=== PATIENT | male | born 1960 | race Hispanic/Latino ===

== ENCOUNTER 2018-03-19 10:06 | Emergency (ER) | payer OTHER ==
[2018-03-19] MEDS ORDERED: METHYLPREDNISOLONE SOD SUCC 125MG/2ML VIAL ONE (10:26)
[2018-03-19] MEDS ORDERED: ONDANSETRON HCL MDV 20ML 2 MG/ML VIAL ONE (10:26)
[2018-03-19] MEDS ORDERED: HYDROMORPHONE HCL 0.5 MG/0.5 ML ML ONE (10:27)
== END 2018-03-19 12:29 | disposition home or self-care (01) ==
LOC: EDH 10:06
DX: M54.31 Sciatica, right side (principal); R55 Syncope and collapse
CPT/HCPCS: 82948; 93005; 96374; 96375; 99284; J1170; J2930

== ENCOUNTER → 2018-04-02 | Outpatient (CLI) | payer SELFPAY | END | disposition home or self-care (01) | LOC: OIH 14:33 | PROVIDERS: ATTEND Internal Medicine Cardiovascular Disease | DX: Z13.6 Encounter for screening for cardiovascular disorders (principal) | CPT/HCPCS: 75571 ==

== ENCOUNTER 2020-10-19 01:08 | Inpatient (IN) | payer BC ==
[~2020-10-19] VITALS: Ht 167.6 cm; Wt 81.9 kg
[~2020-10-19 01:08] MED LIST: AMLO10TA4 PO; CEPH250 PO; LOSA50TA64 PO
[2020-10-19] MEDS ORDERED: ASPIRIN 325 MG TABLET ONE (01:14)
[2020-10-19] MEDS ORDERED: NITROGLYCERIN 0.4 MG SL TAB SL ONE (01:15)
[2020-10-19] MEDS ORDERED: FAMOTIDINE 20MG TAB 20 MG TAB ONE ×2 (01:28→08:21)
[2020-10-19] MEDS ORDERED: PANTOPRAZOLE SODIUM 40 MG TABLET.DR ONE (01:29)
[2020-10-19 01:32] LABS: EOSINOPHILS % (AUTO) 4.4 % (0.0-8.0); HEMATOCRIT 42.8 % (42-54); LYMPHOCYTES % (AUTO) 30.6 % (21.0-51.0); MEAN CORPUSCULAR HEMOGLOBIN 30.6 pg (27.0-33.0); MEAN CORPUSCULAR HGB CONC 34.8 g/dL (32.0-36.0); MEAN CORPUSCULAR VOLUME 87.9 fL (79-99); MONOCYTES % (AUTO) 10.7 % (3.0-13.0); PLATELET COUNT (AUTO) 284 K/uL (130-400); RED BLOOD CELL COUNT(AUTO) 4.87 MIL/uL (4.50-6.20); RED CELL DISTRIBUTION WIDTH 13.7 % (11.0-15.5)
[2020-10-19 01:37] LABS: CREATININE 1.5 mg/dL (0.5-1.5); POTASSIUM 4.2 mmol/L (3.5-5.1)
[2020-10-19 01:41] LABS: INR 0.98 (0.85-1.15); PROTHROMBIN TIME 10.5 SEC (9.6-11.6)
[2020-10-19 01:42] LABS: ALBUMIN 3.7 g/dL (3.5-5.0); BILIRUBIN,TOTAL 0.3 mg/dL (0.2-1.0); PARTIAL THROMBOPLASTIN TIME 27.6 SEC (26.3-35.5)
[2020-10-19 02:01] LABS: B-TYPE NATRIURETIC PEPTIDE 285 pg/mL (0-100)
[2020-10-19] MEDS ORDERED: NITROGLYCERIN 1GM/1 INCH PACKET TD ONE ×2 (02:05→08:22)
[2020-10-19] MEDS ORDERED: LIDOCAINE HCL 2% VISCOUS 15 ML UDCUP ONE (02:26)
[2020-10-19] MEDS ORDERED: MAG HYDROX/AL HYDROX/SIMETH ES 30 ML SUSP UDCUP ONE (02:26)
[2020-10-19] MEDS ORDERED: ONDANSETRON ODT 4 MG TAB ONE (02:27)
[2020-10-19] MEDS ORDERED: MORPHINE SULFATE 2 MG/ML 1ML SYG IV PRN (02:30)
[2020-10-19] MEDS ORDERED: LACTULOSE 20 GM/30 ML UDCUP PO PRN (02:30)
[2020-10-19] MEDS ORDERED: ACETAMINOPHEN 325 MG TAB PO PRN ×2 (02:30)
[2020-10-19] MEDS ORDERED: ONDANSETRON HCL 4 MG/2 ML VIAL IV PRN (02:30)
[2020-10-19 03:28] LABS: HEMOGLOBIN A1C 5.2 % (4.0-6.0)
[2020-10-19 03:35] LABS: THYROID STIMULATING HORMONE 3.79 uIU/mL (0.36-3.74)
[2020-10-19] MEDS ORDERED: METOCLOPRAMIDE 10 MG/2 ML VIAL ONE (03:43)
[2020-10-19] MEDS ORDERED: SODIUM CHLORIDE 0.9% 100 ML IV ONE (03:44)
[2020-10-19] MEDS ORDERED: MORPHINE SULFATE 2 MG/ML 1ML SYG ONE ×2 (04:23→08:22)
[2020-10-19 04:41] LABS: APPEARANCE,URINE Clear (CLEAR); BILIRUBIN,URINE Negative (NEGATIVE); COLOR,URINE Yellow (YELLOW); GLUCOSE, URINE (UA) Negative (NEGATIVE); KETONES,URINE Negative (NEGATIVE); LEUKOCYTE ESTERASE ,URINE Negative (NEGATIVE); NITRATE,URINE Negative (NEGATIVE); OCCULT BLOOD,URINE Negative (NEGATIVE); PROTEIN,URINE Negative (NEGATIVE); UROBILINOGEN,URINE 0.2 mg/dL (0.2-1.0)
[2020-10-19] MEDS ORDERED: ACETAMINOPHEN 325 MG TAB ONE (07:28)
[2020-10-19] MEDS ORDERED: ONDANSETRON HCL 4 MG/2 ML VIAL ONE (08:21)
[2020-10-19] MEDS ORDERED: METOPROLOL TARTRATE 25 MG TAB ONE (08:22)
[2020-10-19] MEDS ORDERED: CLOPIDOGREL BISULFATE 75 MG TAB ONE (08:58)
[2020-10-19] MEDS: CLOPIDOGREL BISULFATE 75 MG TAB PO SCH (09:00)
[2020-10-19 17:05] VITALS: BP 126/65
[2020-10-19] MEDS: ASPIRIN 81MG TAB.CHEW PO SCH (18:11)
[2020-10-19] MEDS: FAMOTIDINE 20MG TAB 20 MG TAB PO SCH (18:11)
[2020-10-19] MEDS: METOPROLOL TARTRATE 25 MG TAB PO SCH ×2 (18:11→21:00)
[2020-10-19] MEDS: NITROGLYCERIN 1GM/1 INCH PACKET TD SCH ×2 (18:12→18:13)
[2020-10-19] MEDS ORDERED: CLOP75TA32 PO (18:25)
[2020-10-19] MEDS ORDERED: SACU1TAB PO (18:25)
[2020-10-19] MEDS ORDERED: NITR0.4T50 SL (18:25)
[2020-10-19] MEDS ORDERED: ISOS30TA6 PO (18:25)
[2020-10-19] MEDS ORDERED: METO-408 PO ×2 (18:25)
[2020-10-19] MEDS ORDERED: AEC81 PO (18:25)
[2020-10-19 19:00] VITALS: BP 108/63
[2020-10-19] MEDS: ATORVASTATIN CALCIUM 20 MG TABLET PO SCH (20:44)
[2020-10-19 23:00] VITALS: BP 110/54
[2020-10-20 03:00] VITALS: BP 109/59
[2020-10-20] MEDS: NITROGLYCERIN 1GM/1 INCH PACKET TD SCH ×3 (03:01→18:01)
[2020-10-20] MEDS: ZOSYN 3.375GM+NS 50ML 50 ML IV SCH ×3 (03:02→13:53)
[2020-10-20 05:35] LABS: BASOPHILS % (AUTO) 1.2 % (0.0-5.0); EOSINOPHILS % (AUTO) 4.9 % (0.0-8.0); HEMATOCRIT 40.4 % (42-54); LYMPHOCYTES % (AUTO) 24.4 % (21.0-51.0); MEAN CORPUSCULAR HGB CONC 34.7 g/dL (32.0-36.0); MEAN CORPUSCULAR VOLUME 89.6 fL (79-99); MONOCYTES % (AUTO) 10.9 % (3.0-13.0); NEUTROPHILS % (AUTO) 58.3 % (40.0-77.0); PLATELET COUNT (AUTO) 309 K/uL (130-400); RED BLOOD CELL COUNT(AUTO) 4.51 MIL/uL (4.50-6.20); RED CELL DISTRIBUTION WIDTH 13.9 % (11.0-15.5); WHITE BLOOD COUNT (AUTO) 8.6 K/uL (4.8-10.8)
[2020-10-20 06:03] LABS: CREATININE 1.6 mg/dL (0.5-1.5); POTASSIUM 3.7 mmol/L (3.5-5.1)
[2020-10-20 08:00] VITALS: BP 100/56
[2020-10-20] MEDS: METOPROLOL TARTRATE 25 MG TAB PO SCH (09:00)
[2020-10-20] MEDS: CLOPIDOGREL BISULFATE 75 MG TAB PO SCH (09:00)
[2020-10-20] MEDS: ASPIRIN 81MG TAB.CHEW PO SCH (09:00)
[2020-10-20 11:22] VITALS: BP 102/60
[2020-10-20] MEDS ORDERED: FENTANYL CITRATE PF 50 MCG/1 ML 2ML VIAL ONE (12:41)
[2020-10-20 16:09] VITALS: BP 115/58
[2020-10-20] MEDS: FAMOTIDINE 20MG TAB 20 MG TAB PO SCH (17:07)
[2020-10-20] MEDS ORDERED: NITROGLYCERIN 0.4 MG SL TAB SL SCH (19:30)
[2020-10-20 19:35] VITALS: BP 109/58
[2020-10-20] MEDS: ATORVASTATIN CALCIUM 20 MG TABLET PO SCH (21:00)
[2020-10-20] MEDS ORDERED: VALSARTAN PO SCH (21:00)
[2020-10-20] MEDS ORDERED: SACUBITRIL PO SCH (21:00)
[2020-10-20] MEDS ORDERED: [UNRECOGNIZED DRUG - OTHER] PO SCH (21:00)
[2020-10-20] MEDS: (Sacubitril/Valsartan (Entresto 24 mg-26 mg Tablet) PO SCH (21:00)
[2020-10-20 23:19] VITALS: BP 97/52
[2020-10-21] MEDS: ZOSYN 3.375GM+NS 50ML 50 ML IV SCH ×2 (02:26→09:35)
[2020-10-21] MEDS: NITROGLYCERIN 1GM/1 INCH PACKET TD SCH ×2 (02:27→09:36)
[2020-10-21 03:40] VITALS: BP 102/56
[2020-10-21] MEDS ORDERED: METOPROLOL SUCCINATE 50 MG TAB.SR.24H PO SCH (08:00)
[2020-10-21] MEDS ORDERED: NON-FORMULARY MEDICATION 1 EACH (Metoprolol Succinate 25 MG) PO SCH (08:00)
[2020-10-21 08:01] VITALS: BP 105/56
[2020-10-21] MEDS ORDERED: ISOSORBIDE MONO 30MG TAB SR PO SCH (09:00)
[2020-10-21] MEDS ORDERED: ASPIRIN 81 MG EC TAB PO SCH (09:00)
[2020-10-21] MEDS ORDERED: CLOPIDOGREL BISULFATE 75 MG TAB PO SCH (09:00)
[2020-10-21] MEDS: (Sacubitril/Valsartan (Entresto 24 mg-26 mg Tablet) PO SCH (09:00)
[2020-10-21] MEDS: FAMOTIDINE 20MG TAB 20 MG TAB PO SCH (09:35)
[2020-10-21] MEDS: CLOPIDOGREL BISULFATE 75 MG TAB PO SCH (09:36)
[2020-10-21 11:33] VITALS: BP 94/53
== END 2020-10-21 15:08 | disposition home or self-care (01) | DRG 445 ==
LOC: EDH 01:08 → EDHIP 02:19 → OBSVTOIN 02:19 → 4DH 16:18
PROVIDERS: ADMIT Internal Medicine; ATTEND Internal Medicine
PROC: 0F9430Z Drainage of Gallbladder with Drainage Device, Percutaneous Approach (ICD-10-PCS; principal; 2020-10-20)
DX: K80.00 Calculus of gallbladder with acute cholecystitis without obstruction (principal); I24.9 Acute ischemic heart disease, unspecified; I12.9 Hypertensive chronic kidney disease with stage 1 through stage 4 chronic kidney disease, or unspecified chronic kidney disease; E78.5 Hyperlipidemia, unspecified; N18.30 Chronic kidney disease, stage 3 unspecified; I25.10 Atherosclerotic heart disease of native coronary artery without angina pectoris; M54.30 Sciatica, unspecified side; I25.5 Ischemic cardiomyopathy; Z79.82 Long term (current) use of aspirin; Z79.899 Other long term (current) drug therapy; Z79.02 Long term (current) use of antithrombotics/antiplatelets; I25.2 Old myocardial infarction; Z95.0 Presence of cardiac pacemaker; Z80.9 Family history of malignant neoplasm, unspecified; Z82.49 Family history of ischemic heart disease and other diseases of the circulatory system
CPT/HCPCS: 10030; 36415; 71045; 74176; 76705; 77012; 78227; 80048; 80053; 80061; 81003; 82550; 83036; 83690; 83880; 84145; 84443; 84484; 85025; 85610; 85730; 87071; 87205; 93005; 93306; 93356; 99291; A9537; G0378; J2405; J2543; J2765; J3010

== ENCOUNTER 2020-11-30 05:49 | Day surgery (SDC) | payer BC ==
[2020-11-28 09:11] LABS: BASOPHILS % (AUTO) 1.2 % (0.0-5.0); EOSINOPHILS % (AUTO) 8.1 % (0.0-8.0); HEMATOCRIT 41.3 % (42-54); LYMPHOCYTES % (AUTO) 24.7 % (21.0-51.0); MEAN CORPUSCULAR HEMOGLOBIN 30.3 pg (27.0-33.0); MEAN CORPUSCULAR HGB CONC 34.4 g/dL (32.0-36.0); MEAN CORPUSCULAR VOLUME 88.2 fL (79-99); NEUTROPHILS % (AUTO) 55.7 % (40.0-77.0); PLATELET COUNT (AUTO) 246 K/uL (130-400); RED BLOOD CELL COUNT(AUTO) 4.68 MIL/uL (4.50-6.20); RED CELL DISTRIBUTION WIDTH 12.8 % (11.0-15.5); WHITE BLOOD COUNT (AUTO) 6.5 K/uL (4.8-10.8)
[2020-11-28 09:16] LABS: CREATININE 1.7 mg/dL (0.5-1.5)
[2020-11-28 09:20] LABS: APPEARANCE,URINE Clear (CLEAR); BILIRUBIN,URINE Negative (NEGATIVE); COLOR,URINE Yellow (YELLOW); GLUCOSE, URINE (UA) Negative (NEGATIVE); KETONES,URINE Trace mg/dL (NEGATIVE); LEUKOCYTE ESTERASE ,URINE Negative (NEGATIVE); NITRATE,URINE Negative (NEGATIVE); OCCULT BLOOD,URINE Negative (NEGATIVE); PH,URINE 5.5 (5.0-8.0); PROTEIN,URINE Trace mg/dL (NEGATIVE); UROBILINOGEN,URINE 0.2 mg/dL (0.2-1.0)
[2020-11-28 09:20] LABS: INR 1.09 (0.85-1.15); PROTHROMBIN TIME 11.6 SEC (9.6-11.6)
[2020-11-28 09:25] LABS: POTASSIUM 2.8 mmol/L (3.5-5.1)
[2020-11-28 09:46] LABS: BACTERIA,URINE Rare /HPF (None Seen); RBC,URINE None Seen /HPF (0-1); SQUAMOUS EPITHELIAL CELL,UR 0-2 /HPF (0-2); WBC,URINE 0-1 /HPF (0-1)
[2020-11-29 11:12] VITALS: BP 147/61
[2020-11-30] VITALS (9 sets, daily range): BP systolic 91–117; BP diastolic 48–62
[~2020-11-30] VITALS: Ht 167.6 cm; Wt 82.8 kg
[~2020-11-30 05:49] MED LIST changes: +AEC81 PO; -AMLO10TA4 PO; -CEPH250 PO; +CLOP75TA32 PO; +FURO40TA5 PO; +ISOS30TA6 PO; -LOSA50TA64 PO; +METO-408 PO; +NITR0.4T50 SL; +PEPCID AC PO; +POTA-79 PO; +SACU1TAB PO
[2020-11-30] MEDS ORDERED: SODIUM CHLORIDE 0.9% 1000ML 1,000 ML IV ONE (06:14)
[2020-11-30] MEDS ORDERED: IOHEXOL 350 MG/ML 100ML INFUS..BTL IV ONE (07:15)
[2020-11-30] MEDS ORDERED: IOHEXOL-350 50ML VIAL IV ONE (07:15)
[2020-11-30] MEDS ORDERED: HEPARIN SODIUM 1000UNIT/ML 10ML VIAL ONE (07:15)
[2020-11-30] MEDS ORDERED: NITROGLYCERIN 2 MG/VIAL VIAL IV ONE (07:15)
[2020-11-30] MEDS ORDERED: LIDOCAINE HCL 2% 20ML ONE (07:15)
[2020-11-30] MEDS ORDERED: MIDAZOLAM HCL 1 MG/ML 2ML VIAL ONE (07:28)
== END 2020-11-30 11:00 | disposition home or self-care (01) ==
LOC: DAH 05:49
PROVIDERS: ATTEND Internal Medicine Cardiovascular Disease
DX: I25.118 Atherosclerotic heart disease of native coronary artery with other forms of angina pectoris (principal); I10 Essential (primary) hypertension; I44.1 Atrioventricular block, second degree; I21.29 ST elevation (STEMI) myocardial infarction involving other sites; I25.5 Ischemic cardiomyopathy; Z98.890 Other specified postprocedural states; Z95.0 Presence of cardiac pacemaker; Z79.899 Other long term (current) drug therapy
CPT/HCPCS: 36415 ×2; 71045; 80048; 81001; 84132; 85025; 85610; 85730; 93005; 93458; A4215; A4216; A4221; A4222; A4223 ×3; A4606; A4663; C1760; C1894; J1644; J2250; J3490 ×2; J7030; Q9965; Q9967 ×2; 99156; 99157

== ENCOUNTER 2020-12-29 09:00 | Inpatient (IN) | payer BC ==
[~2020-12-29] VITALS: Ht 162.6 cm; Wt 85.3 kg
[~2020-12-29 09:00] MED LIST changes: -ISOS30TA6 PO; +ISOS30TA92 PO; -NITR0.4T50 SL; -PEPCID AC PO; -POTA-79 PO
[2020-12-29 11:33] LABS: BASOPHILS % (AUTO) 1.3 % (0.0-5.0); EOSINOPHILS % (AUTO) 5.4 % (0.0-8.0); LYMPHOCYTES % (AUTO) 24.5 % (21.0-51.0); MEAN CORPUSCULAR HEMOGLOBIN 30.8 pg (27.0-33.0); MEAN CORPUSCULAR HGB CONC 34.9 g/dL (32.0-36.0); MEAN CORPUSCULAR VOLUME 88.4 fL (79-99); MONOCYTES % (AUTO) 9.9 % (3.0-13.0); NEUTROPHILS % (AUTO) 58.5 % (40.0-77.0); PLATELET COUNT (AUTO) 276 K/uL (130-400); RED BLOOD CELL COUNT(AUTO) 4.64 MIL/uL (4.50-6.20); RED CELL DISTRIBUTION WIDTH 13.2 % (11.0-15.5); WHITE BLOOD COUNT (AUTO) 7.8 K/uL (4.8-10.8)
[2020-12-29 11:43] LABS: HEMOGLOBIN A1C 5.5 % (4.0-6.0)
[2020-12-29 11:48] LABS: ALBUMIN 3.4 g/dL (3.5-5.0); BILIRUBIN,TOTAL 0.6 mg/dL (0.2-1.0); CREATININE 1.4 mg/dL (0.5-1.5); INR 1.06 (0.85-1.15); PROTHROMBIN TIME 11.5 SEC (9.6-11.6); TOTAL PROTEIN, SERUM 8.2 g/dL (6.0-8.3)
[2020-12-29 11:51] LABS: POTASSIUM 2.8 mmol/L (3.5-5.1)
[2020-12-29 12:11] LABS: PLATELET FUNCTION ANALYSIS EPI > 300 SEC (55-192)
[2020-12-29 12:12] LABS: PLATELET COUNT (AUTO) 276 K/uL (130-400); PLATELET FUNCTION ANALYSIS ADP 96 SEC (62-100)
[2021-01-01 10:08] VITALS: BP 118/59
[2021-01-01] MEDS ORDERED: FAMO-136 PO (10:57)
[2021-01-01] MEDS ORDERED: POTA10CA44 PO (10:57)
[2021-01-02] VITALS (17 sets, daily range): BP systolic 104–148; BP diastolic 50–72
[2021-01-02] MEDS: CEFAZOLIN SODIUM 1 GM VIAL IVP SCH ×2 (06:00→11:35)
[2021-01-02] MEDS ORDERED: LACTATED RINGERS 1000ML 1,000 ML IV ONE (10:09)
[2021-01-02] MEDS ORDERED: AMINOCAPROIC ACID 5,000MG VIAL 15,000 MG in 0.9% NACL 500ML IV.SOLN 420 ML IV PRN (10:15)
[2021-01-02] MEDS ORDERED: EPINEPHRINE PF 1MG AMP 10 MG in 0.9% NACL 250ML 240 ML IV PRN (10:15)
[2021-01-02] MEDS ORDERED: NOREPINEPHRINE BITARTRATE 8 MG in DEXTROSE 5%-WATER 250 ML IV PRN (10:15)
[2021-01-02] MEDS ORDERED: PAPAVERINE HCL 30 MG/ML 2ML VIAL ONE (10:35)
[2021-01-02] MEDS ORDERED: NOREPINEPHRINE BITARTRATE 8 MG in 0.9% NACL 250ML 250 ML IV PRN (11:00)
[2021-01-02] MEDS ORDERED: HEPARIN 10,000 UNIT/10ML (1,000 UNIT/ML) VIAL ONE ×2 (11:15→12:13)
[2021-01-02] MEDS ORDERED: ESMOLOL HCL 10 MG/ML 10 ML VIAL ONE (11:15)
[2021-01-02] MEDS ORDERED: EPINEPHRINE PF 1MG AMP ONE (11:15)
[2021-01-02] MEDS ORDERED: PROTAMINE SULFATE 10 MG/ML 25ML VIAL IV ONE (11:15)
[2021-01-02] MEDS ORDERED: AMINOCAPROIC ACID 5,000MG VIAL ONE (11:15)
[2021-01-02] MEDS ORDERED: SODIUM BICARB 50MEQ 50ML VIAL 150 ML ONE ×2 (11:15→13:05)
[2021-01-02] MEDS ORDERED: LIDOCAINE PF 100MG/5ML (2%) SYRINGE 5ML ONE (11:15)
[2021-01-02] MEDS ORDERED: NOREPINEPHRINE BITARTRATE 1 MG/1 ML ML IV ONE (11:15)
[2021-01-02] MEDS ORDERED: FENTANYL CITRATE PF 50 MCG/1 ML 20ML VIAL IJ ONE (11:16)
[2021-01-02] MEDS ORDERED: NITROGLYCERIN 50MG/D5W 250ML 1 BOT ONE (11:16)
[2021-01-02] MEDS ORDERED: ROCURONIUM 10MG/1ML SYR 10 MG/ML ML ONE (11:16)
[2021-01-02] MEDS ORDERED: MIDAZOLAM HCL 1 MG/ML 2ML VIAL ONE (11:16)
[2021-01-02] MEDS ORDERED: PROPOFOL 10 MG/ML 20ML VIAL IV ONE (11:16)
[2021-01-02] MEDS ORDERED: KETAMINE HCL 100 MG/ML 5ML VIAL IJ ONE (11:20)
[2021-01-02 12:08] LABS: ABG BASE EXCESS -1.4 mmol/L (-2.0-3.0); ABG HCO3 26.3 mmol/L (21.0-28.0); ABG OXYGEN SATURATION 99.3 % (95.0-99.0); ABG PCO2 57 mmHg (35-48)
[2021-01-02] MEDS ORDERED: PHENYLEPHRINE HCL 10 MG/ML 1ML VIAL IV ONE ×2 (12:36→12:37)
[2021-01-02] MEDS ORDERED: POTASSIUM CHLORIDE 20MEQ/100ML 100 ML IV ONE ×3 (12:48→14:01)
[2021-01-02] MEDS ORDERED: AMIODARONE 150MG VIAL ONE (13:01)
[2021-01-02] MEDS ORDERED: MIDAZOLAM HCL 1 MG/ML 5ML VIAL ONE (13:07)
[2021-01-02] MEDS ORDERED: ALBUMIN (HUMAN) 5% 250 ML IV ONE (13:08)
[2021-01-02 13:10] LABS: ABG BASE EXCESS 7.4 mmol/L (-2.0-3.0); ABG HCO3 31.3 mmol/L (21.0-28.0); ABG OXYGEN SATURATION 98.7 % (95.0-99.0); ABG PCO2 41 mmHg (35-48)
[2021-01-02 13:34] LABS: ABG OXYGEN SATURATION 98.6 % (95.0-99.0); ABG PCO2 41 mmHg (35-48)
[2021-01-02 13:57] LABS: ABG BASE EXCESS -3.2 mmol/L (-2.0-3.0); ABG HCO3 22.5 mmol/L (21.0-28.0); ABG OXYGEN SATURATION 97.6 % (95.0-99.0); ABG PCO2 43 mmHg (35-48)
[2021-01-02] MEDS ORDERED: GLUCAGON 1MG KIT 1 MG ML IM PRN (14:00)
[2021-01-02] MEDS ORDERED: ONDANSETRON 4MG INJ IV PRN (14:00)
[2021-01-02] MEDS ORDERED: INSULIN REGULAR, HUMAN 3ML 100 UNIT in 0.9%NACL 100ML 99 ML IV SCH ×2 (14:00)
[2021-01-02] MEDS ORDERED: PROPOFOL 1000 MG/100 ML 100 ML IV PRN (14:00)
[2021-01-02] MEDS ORDERED: EPINEPHRINE PF 1MG AMP 10 MG in DEXTROSE 5%-WATER 250 ML IV PRN (14:00)
[2021-01-02] MEDS ORDERED: ACETAMINOPHEN 325 MG TAB PO PRN (14:00)
[2021-01-02] MEDS ORDERED: AMINOCAPROIC ACID 5,000MG VIAL 15,000 MG in 0.9% NACL 250ML 250 ML IV SCH (14:00)
[2021-01-02] MEDS ORDERED: ALBUMIN (HUMAN) 5% 250 ML IV PRN (14:00)
[2021-01-02] MEDS ORDERED: NOREPINEPHRIN 4MG/NS 250ML 250 ML IV PRN (14:00)
[2021-01-02] MEDS ORDERED: MAGNESIUM 2GM PREMIX 50ML 50 ML IV PRN (14:00)
[2021-01-02] MEDS ORDERED: ACETAMINOPHEN 650 MG SUPPOSITORY RC PRN (14:00)
[2021-01-02] MEDS ORDERED: POTASSIUM PHOS 15 mMOL+NS250ML 250 ML IV PRN (14:00)
[2021-01-02] MEDS ORDERED: 0.9%NACL 10ML VIAL IVP PRN (14:00)
[2021-01-02] MEDS ORDERED: NITROGLYCERIN 50MG/D5W 250ML 250 BOT IV SCH (14:00)
[2021-01-02] MEDS ORDERED: 0.9% NACL 500ML IV.SOLN 500 ML IV SCH (14:00)
[2021-01-02] MEDS ORDERED: DEXTROSE 50%-WATER 50 ML DISP.SYRIN IV PRN (14:00)
[2021-01-02] MEDS ORDERED: 0.9%NACL 1000ML 1,000 ML IV SCH (14:00)
[2021-01-02] MEDS ORDERED: MORPHINE 4 MG SYG IV PRN (14:00)
[2021-01-02] MEDS ORDERED: CALCIUM GLUC 1GM 1 GM in 0.9%NACL 50ML 50 ML IV PRN (14:00)
[2021-01-02] MEDS ORDERED: MORPHINE 2 MG SYG IV PRN ×2 (14:00→14:30)
[2021-01-02 15:01] LABS: CREATININE 1.6 mg/dL (0.5-1.5); MAGNESIUM 1.6 mg/dL (1.80-2.40); PHOSPHORUS 3.5 mg/dL (2.5-4.9)
[2021-01-02 15:03] LABS: HEMATOCRIT 34.5 % (42-54); MEAN CORPUSCULAR HEMOGLOBIN 30.9 pg (27.0-33.0); MEAN CORPUSCULAR HGB CONC 35.1 g/dL (32.0-36.0); MEAN CORPUSCULAR VOLUME 88.2 fL (79-99); PLATELET COUNT (AUTO) 358 K/uL (130-400); RED BLOOD CELL COUNT(AUTO) 3.91 MIL/uL (4.50-6.20); RED CELL DISTRIBUTION WIDTH 13.1 % (11.0-15.5)
[2021-01-02 15:05] LABS: INR 1.15 (0.85-1.15); PROTHROMBIN TIME 12.4 SEC (9.6-11.6)
[2021-01-02 15:06] LABS: PARTIAL THROMBOPLASTIN TIME 33.3 SEC (26.3-35.5)
[2021-01-02 15:07] LABS: WHITE BLOOD COUNT (AUTO) 36.8 K/uL (4.8-10.8)
[2021-01-02] MEDS: POTASSIUM CHLORIDE 20MEQ/100ML 100 ML IV PRN ×6 (15:10→21:07)
[2021-01-02 15:32] LABS: ABG BASE EXCESS -5.3 mmol/L (-2.0-3.0); ABG HCO3 19.4 mmol/L (21.0-28.0); ABG OXYGEN SATURATION 97.8 % (95.0-99.0); ABG PCO2 35 mmHg (35-48)
[2021-01-02] MEDS: SODIUM BICARB 50MEQ 50ML VIAL IV PRN ×3 (15:56→20:42)
[2021-01-02 16:09] LABS: BAND NEUTROPHILS % (MANUAL) 4 % (0-2); EOSINOPHILS % (MANUAL) 1 % (1-6); LYMPHOCYTES % (MANUAL) 12 % (22-44); MAN.DIFF COMMENT-IMPRESSION MANUAL DIFFERENTIAL; MONOCYTES % (MANUAL) 7 % (2-9); PLATELET MORPHOLOGY COMMENT ADEQUATE; SEGMENTED NEUTROPHILS % 76 % (40-70)
[2021-01-02 16:38] LABS: ABG BASE EXCESS -1.1 mmol/L (-2.0-3.0); ABG OXYGEN SATURATION 94.4 % (95.0-99.0); ABG PCO2 42 mmHg (35-48)
[2021-01-02] MEDS: TRAMADOL HCL 50 MG TABLET PO PRN ×3 (17:40→21:38)
[2021-01-02 17:41] LABS: ABG BASE EXCESS -0.9 mmol/L (-2.0-3.0); ABG HCO3 24.2 mmol/L (21.0-28.0); ABG OXYGEN SATURATION 95.7 % (95.0-99.0); ABG PCO2 42 mmHg (35-48)
[2021-01-02 19:03] LABS: ABG BASE EXCESS -2.9 mmol/L (-2.0-3.0); ABG HCO3 22.6 mmol/L (21.0-28.0); ABG OXYGEN SATURATION 96.6 % (95.0-99.0); ABG PCO2 42 mmHg (35-48)
[2021-01-02] MEDS: CEFAZOLIN SODIUM 1 GM VIAL IV SCH (19:36)
[2021-01-02] MEDS: ATORVASTATIN 20 MG TABLET PO SCH (21:00)
[2021-01-02 21:21] LABS: ABG BASE EXCESS 1.7 mmol/L (-2.0-3.0); ABG HCO3 26.2 mmol/L (21.0-28.0); ABG OXYGEN SATURATION 95.9 % (95.0-99.0); ABG PCO2 41 mmHg (35-48)
[2021-01-02] MEDS: FAMOTIDINE 20MG VIAL IV SCH (21:34)
[2021-01-03] VITALS (44 sets, daily range): BP systolic 67–136; BP diastolic 39–109
[2021-01-03] MEDS: POTASSIUM CHLORIDE 20MEQ/100ML 100 ML IV PRN ×3 (02:38→07:00)
[2021-01-03 03:50] LABS: ABG BASE EXCESS 2.7 mmol/L (-2.0-3.0); ABG HCO3 26.9 mmol/L (21.0-28.0); ABG OXYGEN SATURATION 96.5 % (95.0-99.0); ABG PCO2 40 mmHg (35-48)
[2021-01-03] MEDS: TRAMADOL HCL 50 MG TABLET PO PRN ×2 (03:53→17:53)
[2021-01-03] MEDS: CEFAZOLIN SODIUM 1 GM VIAL IV SCH ×2 (03:54→18:46)
[2021-01-03 04:17] LABS: HEMATOCRIT 35.6 % (42-54); MEAN CORPUSCULAR HEMOGLOBIN 30.6 pg (27.0-33.0); MEAN CORPUSCULAR HGB CONC 34.6 g/dL (32.0-36.0); MEAN CORPUSCULAR VOLUME 88.6 fL (79-99); RED BLOOD CELL COUNT(AUTO) 4.02 MIL/uL (4.50-6.20); RED CELL DISTRIBUTION WIDTH 13.2 % (11.0-15.5); WHITE BLOOD COUNT (AUTO) 25.5 K/uL (4.8-10.8)
[2021-01-03 04:34] LABS: PROTHROMBIN TIME 10.9 SEC (9.6-11.6)
[2021-01-03 04:35] LABS: PARTIAL THROMBOPLASTIN TIME 22.1 SEC (26.3-35.5)
[2021-01-03 04:36] LABS: CREATININE 1.8 mg/dL (0.5-1.5); MAGNESIUM 2.3 mg/dL (1.80-2.40); PHOSPHORUS 0.8 mg/dL (2.5-4.9); POTASSIUM 3.7 mmol/L (3.5-5.1)
[2021-01-03] MEDS: ASPIRIN 325MG EC TAB PO SCH (09:05)
[2021-01-03] MEDS: FAMOTIDINE 20MG VIAL IV SCH ×2 (09:05→20:53)
[2021-01-03] MEDS: FUROSEMIDE 20MG VIAL IV SCH ×2 (09:05→20:53)
[2021-01-03] MEDS ORDERED: PHARMACY COMMUNICATION MISC SCH (19:30)
[2021-01-03] MEDS: ATORVASTATIN 20 MG TABLET PO SCH (20:53)
[2021-01-04] VITALS (30 sets, daily range): BP systolic 89–129; BP diastolic 46–83
[2021-01-04] MEDS: TRAMADOL HCL 50 MG TABLET PO PRN ×3 (01:00→13:51)
[2021-01-04 04:54] LABS: HEMATOCRIT 33.5 % (42-54); MEAN CORPUSCULAR HEMOGLOBIN 30.4 pg (27.0-33.0); MEAN CORPUSCULAR HGB CONC 33.4 g/dL (32.0-36.0); RED BLOOD CELL COUNT(AUTO) 3.68 MIL/uL (4.50-6.20); RED CELL DISTRIBUTION WIDTH 13.9 % (11.0-15.5); WHITE BLOOD COUNT (AUTO) 24.3 K/uL (4.8-10.8)
[2021-01-04 05:20] LABS: PHOSPHORUS 2.6 mg/dL (2.5-4.9)
[2021-01-04] MEDS: METOPROLOL TARTRATE 25 MG TAB PO SCH ×2 (08:34→21:00)
[2021-01-04] MEDS: ASPIRIN 325MG EC TAB PO SCH (08:37)
[2021-01-04] MEDS: FUROSEMIDE 20 MG TABLET PO SCH ×2 (08:37→16:50)
[2021-01-04] MEDS: FAMOTIDINE 20MG TAB PO SCH (08:38)
[2021-01-04] MEDS ORDERED: METOPROLOL TARTRATE 25 MG TAB PO SCH (09:00)
[2021-01-04] MEDS: MIDODRINE HCL 5 MG TABLET PO SCH (16:49)
[2021-01-04] MEDS: ATORVASTATIN 20 MG TABLET PO SCH (20:30)
[2021-01-05] VITALS (16 sets, daily range): BP systolic 94–136; BP diastolic 39–70
[2021-01-05] MEDS: MIDODRINE HCL 5 MG TABLET PO SCH ×4 (00:23→20:37)
[2021-01-05 04:37] LABS: HEMATOCRIT 31.3 % (42-54); MEAN CORPUSCULAR HEMOGLOBIN 30.8 pg (27.0-33.0); MEAN CORPUSCULAR HGB CONC 33.2 g/dL (32.0-36.0); MEAN CORPUSCULAR VOLUME 92.6 fL (79-99); RED BLOOD CELL COUNT(AUTO) 3.38 MIL/uL (4.50-6.20); RED CELL DISTRIBUTION WIDTH 13.8 % (11.0-15.5); WHITE BLOOD COUNT (AUTO) 14.7 K/uL (4.8-10.8)
[2021-01-05 04:54] LABS: CREATININE 1.8 mg/dL (0.5-1.5); POTASSIUM 4.6 mmol/L (3.5-5.1)
[2021-01-05] MEDS: METOPROLOL TARTRATE 25 MG TAB PO SCH ×2 (09:00→20:37)
[2021-01-05] MEDS: FUROSEMIDE 20 MG TABLET PO SCH ×2 (09:10→17:15)
[2021-01-05] MEDS: ASPIRIN 325MG EC TAB PO SCH (09:10)
[2021-01-05] MEDS: ENOXAPARIN SODIUM 30 MG/0.3 ML SQ SCH (09:11)
[2021-01-05] MEDS: FAMOTIDINE 20MG TAB PO SCH (09:12)
[2021-01-05] MEDS: ATORVASTATIN 20 MG TABLET PO SCH (20:41)
[2021-01-06] VITALS (7 sets, daily range): BP systolic 95–118; BP diastolic 41–65
[2021-01-06 05:17] LABS: HEMATOCRIT 31.8 % (42-54); MEAN CORPUSCULAR HEMOGLOBIN 31.1 pg (27.0-33.0); MEAN CORPUSCULAR VOLUME 91.6 fL (79-99); RED BLOOD CELL COUNT(AUTO) 3.47 MIL/uL (4.50-6.20); RED CELL DISTRIBUTION WIDTH 13.3 % (11.0-15.5); WHITE BLOOD COUNT (AUTO) 12.2 K/uL (4.8-10.8)
[2021-01-06 05:24] LABS: CREATININE 1.6 mg/dL (0.5-1.5); POTASSIUM 3.7 mmol/L (3.5-5.1)
[2021-01-06] MEDS: ENOXAPARIN SODIUM 30 MG/0.3 ML SQ SCH (08:06)
[2021-01-06] MEDS: FAMOTIDINE 20MG TAB PO SCH (08:06)
[2021-01-06] MEDS: METOPROLOL TARTRATE 25 MG TAB PO SCH ×2 (08:06→19:40)
[2021-01-06] MEDS: MIDODRINE HCL 5 MG TABLET PO SCH ×2 (08:06→13:33)
[2021-01-06] MEDS: FUROSEMIDE 20 MG TABLET PO SCH (08:06)
[2021-01-06] MEDS: ASPIRIN 325MG EC TAB PO SCH (08:06)
[2021-01-06] MEDS: CLOPIDOGREL 75MG TAB PO SCH (13:33)
[2021-01-06] MEDS ORDERED: PHEN26CR2 RC (18:43)
[2021-01-06] MEDS ORDERED: BISM262O28 PO (18:43)
[2021-01-06] MEDS: ATORVASTATIN 20 MG TABLET PO SCH (19:40)
[2021-01-06] MEDS ORDERED: HEMORRHOIDAL OINTMENT 57 GM CREAM.GM. RC PRN (21:00)
[2021-01-07 04:16] VITALS: BP 102/51
[2021-01-07 08:00] VITALS: BP 116/56
[2021-01-07] MEDS: ASPIRIN 325MG EC TAB PO SCH (08:30)
[2021-01-07] MEDS: MIDODRINE HCL 5 MG TABLET PO SCH ×2 (08:31→22:24)
[2021-01-07] MEDS: METOPROLOL TARTRATE 25 MG TAB PO SCH ×2 (08:32→22:25)
[2021-01-07] MEDS: CLOPIDOGREL 75MG TAB PO SCH (08:32)
[2021-01-07] MEDS: FAMOTIDINE 20MG TAB PO SCH (08:32)
[2021-01-07] MEDS: FUROSEMIDE 20 MG TABLET PO SCH (08:32)
[2021-01-07] MEDS: ENOXAPARIN SODIUM 30 MG/0.3 ML SQ SCH (08:38)
[2021-01-07 11:23] VITALS: BP 133/61
[2021-01-07 16:00] VITALS: BP 124/59
[2021-01-07 20:03] VITALS: BP 127/62
[2021-01-07] MEDS: ATORVASTATIN 20 MG TABLET PO SCH (22:24)
[2021-01-07 23:45] VITALS: BP 109/60
[2021-01-08 04:30] VITALS: BP 115/57
[2021-01-08] MEDS ORDERED: ATOR20TA65 PO (07:00)
[2021-01-08] MEDS: ENOXAPARIN SODIUM 30 MG/0.3 ML SQ SCH (07:26)
[2021-01-08] MEDS: FAMOTIDINE 20MG TAB PO SCH (07:26)
[2021-01-08] MEDS: METOPROLOL TARTRATE 25 MG TAB PO SCH (07:26)
[2021-01-08] MEDS: MIDODRINE HCL 5 MG TABLET PO SCH (07:26)
[2021-01-08] MEDS: FUROSEMIDE 20 MG TABLET PO SCH (07:26)
[2021-01-08] MEDS: CLOPIDOGREL 75MG TAB PO SCH (07:26)
[2021-01-08] MEDS: ASPIRIN 325MG EC TAB PO SCH (07:26)
[2021-03-09] MEDS ORDERED: SACU1TAB PO (13:09)
== END 2021-01-08 11:49 | disposition home or self-care (01) | DRG 235 ==
LOC: DAHIP 01-02 10:23 → 2CH 01-02 13:20 → 4CH 01-05 17:36
PROVIDERS: ADMIT Thoracic Surgery (Cardiothoracic Vascular Surgery); ATTEND Thoracic Surgery (Cardiothoracic Vascular Surgery)
PROC: 02100Z9 Bypass Coronary Artery, One Artery from Left Internal Mammary, Open Approach (ICD-10-PCS; principal; 2021-01-02 11:20)
PROC: 021109W Bypass Coronary Artery, Two Arteries from Aorta with Autologous Venous Tissue, Open Approach (ICD-10-PCS; 2021-01-02 11:20)
PROC: 06BQ4ZZ Excision of Left Saphenous Vein, Percutaneous Endoscopic Approach (ICD-10-PCS; 2021-01-02 11:20)
DX: I25.110 Atherosclerotic heart disease of native coronary artery with unstable angina pectoris (principal); I50.43 Acute on chronic combined systolic (congestive) and diastolic (congestive) heart failure; N17.9 Acute kidney failure, unspecified; I13.0 Hypertensive heart and chronic kidney disease with heart failure and stage 1 through stage 4 chronic kidney disease, or unspecified chronic kidney disease; I45.89 Other specified conduction disorders; N18.31 Chronic kidney disease, stage 3a; Z20.822 Contact with and (suspected) exposure to COVID-19; E78.00 Pure hypercholesterolemia, unspecified; E78.5 Hyperlipidemia, unspecified; I25.5 Ischemic cardiomyopathy; I95.9 Hypotension, unspecified; I25.2 Old myocardial infarction; Z79.82 Long term (current) use of aspirin; Z79.899 Other long term (current) drug therapy; Z95.0 Presence of cardiac pacemaker
CPT/HCPCS: 36415; 71045; 71046; 80048; 80053; 80061; 82330; 82435; 82803; 82947; 82948; 83036; 83605; 83735; 84100; 84132; 84295; 85018; 85025; 85027; 85347; 85576; 85610; 85730; 86850; 86900; 86901; 86923; 93005; 93306; 93880; 94002; 94010; 94150; 97039; A7048; G0378; J0171; J0282; J0610; J0690; J1644; J1650; J1815; J1940; J2001; J2250; J2370; J2405; J2440; J2704; J2720; J3010; J3475; J3480; J3490; J7030; J7040; J7050; J7120; P9045; U0003

== ENCOUNTER 2021-01-08 22:56 | Emergency (ER) | payer BC ==
[~2021-01-08 22:56] MED LIST changes: +ATOR20TA65 PO; +BISM262O28 PO; +FAMO-136 PO; -ISOS30TA92 PO; +PHEN26CR2 RC; +POTA10CA44 PO
[2021-01-09] MEDS ORDERED: METOCLOPRAMIDE 10 MG/2 ML VIAL ONE (00:24)
[2021-01-09 00:56] LABS: CREATININE 1.8 mg/dL (0.5-1.5); POTASSIUM 3.1 mmol/L (3.5-5.1)
[2021-01-09 01:00] LABS: ALBUMIN 2.8 g/dL (3.5-5.0); BILIRUBIN,TOTAL 0.8 mg/dL (0.2-1.0); TOTAL PROTEIN, SERUM 7.1 g/dL (6.0-8.3)
[2021-01-09 01:01] LABS: BASOPHILS % (AUTO) 0.5 % (0.0-5.0); EOSINOPHILS % (AUTO) 0.5 % (0.0-8.0); HEMATOCRIT 33.5 % (42-54); LYMPHOCYTES % (AUTO) 14.5 % (21.0-51.0); MEAN CORPUSCULAR HEMOGLOBIN 31.5 pg (27.0-33.0); MEAN CORPUSCULAR HGB CONC 34.9 g/dL (32.0-36.0); MEAN CORPUSCULAR VOLUME 90.3 fL (79-99); MONOCYTES % (AUTO) 23.7 % (3.0-13.0); NEUTROPHILS % (AUTO) 59.7 % (40.0-77.0); PLATELET COUNT (AUTO) 251 K/uL (130-400); RED BLOOD CELL COUNT(AUTO) 3.71 MIL/uL (4.50-6.20); RED CELL DISTRIBUTION WIDTH 13.6 % (11.0-15.5); WHITE BLOOD COUNT (AUTO) 8.7 K/uL (4.8-10.8)
[2021-01-09] MEDS ORDERED: PROCHLORPERAZINE EDISYLATE 10 MG/2 ML VIAL ONE (01:57)
== END 2021-01-09 03:30 | disposition home or self-care (01) ==
LOC: EDH 22:56
DX: R06.6 Hiccough (principal); J90 Pleural effusion, not elsewhere classified; I25.10 Atherosclerotic heart disease of native coronary artery without angina pectoris; I10 Essential (primary) hypertension; I25.2 Old myocardial infarction; Z87.891 Personal history of nicotine dependence; Z79.899 Other long term (current) drug therapy
CPT/HCPCS: 36415; 71045; 80053; 83690; 85025; 93005; 96374; 96375; 99285; J0780; J2765

== ENCOUNTER 2021-03-12 06:59 | Observation (INO) | payer BC ==
[2021-03-07 11:25] LABS: BASOPHILS % (AUTO) 0.7 % (0.0-5.0); EOSINOPHILS % (AUTO) 6.6 % (0.0-8.0); HEMATOCRIT 36.4 % (42-54); LYMPHOCYTES % (AUTO) 24.8 % (21.0-51.0); MEAN CORPUSCULAR HEMOGLOBIN 29.8 pg (27.0-33.0); MEAN CORPUSCULAR HGB CONC 34.3 g/dL (32.0-36.0); MEAN CORPUSCULAR VOLUME 86.7 fL (79-99); MONOCYTES % (AUTO) 11.7 % (3.0-13.0); NEUTROPHILS % (AUTO) 55.8 % (40.0-77.0); PLATELET COUNT (AUTO) 298 K/uL (130-400); RED CELL DISTRIBUTION WIDTH 12.5 % (11.0-15.5); WHITE BLOOD COUNT (AUTO) 7.2 K/uL (4.8-10.8)
[2021-03-07 11:29] LABS: CREATININE 1.5 mg/dL (0.5-1.5); POTASSIUM 3.2 mmol/L (3.5-5.1)
[2021-03-07 11:36] LABS: INR 1.05 (0.85-1.15); PROTHROMBIN TIME 11.4 SEC (9.6-11.6)
[2021-03-07 11:37] LABS: PARTIAL THROMBOPLASTIN TIME 30.5 SEC (26.3-35.5)
[2021-03-09 12:53] VITALS: BP 117/60
[~2021-03-12] VITALS: Ht 167.6 cm; Wt 82.4 kg
[2021-03-12] VITALS (26 sets, daily range): BP systolic 112–136; BP diastolic 38–63
[~2021-03-12 06:59] MED LIST changes: -ATOR20TA65 PO; -BISM262O28 PO; +CEFAZOLIN SODIUM 1 GM VIAL IVP SCH; -CLOP75TA32 PO; -PHEN26CR2 RC; -POTA10CA44 PO; +SODIUM CHLORIDE 0.9% 1000ML 1,000 ML IV SCH
[2021-03-12] MEDS ORDERED: LIDOCAINE PF 2% 5ML ABBOJECT ONE (07:00)
[2021-03-12] MEDS ORDERED: NEOSTIGMINE 5MG/5ML SYR IV ONE (07:01)
[2021-03-12] MEDS ORDERED: MIDAZOLAM HCL 1 MG/ML 2ML VIAL ONE (07:01)
[2021-03-12] MEDS ORDERED: PROPOFOL 10 MG/ML 20ML VIAL IV ONE (07:01)
[2021-03-12] MEDS ORDERED: GLYCOPYRROLATE 1 MG/5 ML SYRINGE ONE (07:01)
[2021-03-12] MEDS ORDERED: ONDANSETRON HCL 4 MG/2 ML VIAL ONE ×2 (07:01→08:46)
[2021-03-12] MEDS ORDERED: ROCURONIUM 10MG/1ML SYR 10 MG/ML ML ONE (07:02)
[2021-03-12] MEDS ORDERED: FENTANYL CITRATE PF 50 MCG/1 ML 2ML VIAL ONE (07:02)
[2021-03-12] MEDS ORDERED: BUPIVACAINE/PF 0.5% 30ML VIAL ONE (07:37)
[2021-03-12] MEDS ORDERED: EPHEDRINE SULFATE 50 MG/ML AMPULE ONE (07:59)
[2021-03-12] MEDS ORDERED: KETAMINE 50MG/ML SYRINGE 50 MG/ML DISP.SYRIN IV ONE (08:01)
[2021-03-12] MEDS: CEFAZOLIN SODIUM 1 GM VIAL ONE ×2 (08:11→08:48)
[2021-03-12 08:24] LABS: CREATININE 1.6 mg/dL (0.5-1.5); POTASSIUM 3.2 mmol/L (3.5-5.1)
[2021-03-12] MEDS ORDERED: MORPHINE SULFATE 4 MG/1ML SYG IV PRN (09:30)
[2021-03-12] MEDS ORDERED: ONDANSETRON HCL 4 MG/2 ML VIAL IVP PRN (09:30)
[2021-03-12] MEDS ORDERED: MORPHINE SULFATE 2 MG/ML 1ML SYG IV PRN (09:30)
[2021-03-12] MEDS ORDERED: HYDROCODONE/ACETAMINOPHEN 5/325 MG TAB PO PRN (09:30)
[2021-03-12] MEDS: ZOSYN 3.375GM+NS 50ML 50 ML IV SCH ×2 (13:58→20:25)
[2021-03-12] MEDS: D5W-1/2 NS/20MEQ KCL 1,000 ML IV SCH ×3 (14:15→22:50)
[2021-03-12 17:57] LABS: CREATININE 1.7 mg/dL (0.5-1.5); POTASSIUM 3.1 mmol/L (3.5-5.1)
[2021-03-12] MEDS: ATORVASTATIN CALCIUM 40 MG TABLET PO SCH (20:26)
[2021-03-13] VITALS (7 sets, daily range): BP systolic 98–108; BP diastolic 42–57
[2021-03-13] MEDS: ZOSYN 3.375GM+NS 50ML 50 ML IV SCH ×3 (04:29→20:00)
[2021-03-13 04:38] LABS: BASOPHILS % (AUTO) 0.1 % (0.0-5.0); HEMATOCRIT 36.6 % (42-54); LYMPHOCYTES % (AUTO) 7.2 % (21.0-51.0); MEAN CORPUSCULAR HEMOGLOBIN 29.7 pg (27.0-33.0); MEAN CORPUSCULAR VOLUME 84.9 fL (79-99); NEUTROPHILS % (AUTO) 82.7 % (40.0-77.0); PLATELET COUNT (AUTO) 349 K/uL (130-400); RED BLOOD CELL COUNT(AUTO) 4.31 MIL/uL (4.50-6.20); RED CELL DISTRIBUTION WIDTH 12.2 % (11.0-15.5); WHITE BLOOD COUNT (AUTO) 17.9 K/uL (4.8-10.8)
[2021-03-13 04:51] LABS: CREATININE 1.6 mg/dL (0.5-1.5); POTASSIUM 3.4 mmol/L (3.5-5.1)
[2021-03-13] MEDS: FUROSEMIDE 40 MG TABLET PO SCH ×2 (09:00→09:05)
[2021-03-13] MEDS: VALSARTAN PO SCH ×2 (09:00→20:02)
[2021-03-13] MEDS: SACUBITRIL PO SCH ×2 (09:00→20:02)
[2021-03-13] MEDS: METOPROLOL SUCCINATE 50 MG TAB.SR.24H PO SCH (09:05)
[2021-03-13] MEDS: ASPIRIN 81 MG EC TAB PO SCH (09:05)
[2021-03-13] MEDS: D5W-1/2 NS/20MEQ KCL 1,000 ML IV SCH (12:10)
[2021-03-13] MEDS ORDERED: FAMOTIDINE 20MG TAB 20 MG TAB PO SCH (19:45)
[2021-03-13] MEDS ORDERED: FAMOTIDINE 20MG TAB 20 MG TAB ONE (19:55)
[2021-03-13] MEDS: ATORVASTATIN CALCIUM 40 MG TABLET PO SCH ×2 (20:01→20:03)
[2021-03-14] MEDS: D5W-1/2 NS/20MEQ KCL 1,000 ML IV SCH (01:30)
[2021-03-14 03:49] VITALS: BP 106/50
[2021-03-14 05:15] LABS: BASOPHILS % (AUTO) 0.2 % (0.0-5.0); EOSINOPHILS % (AUTO) 0.2 % (0.0-8.0); HEMATOCRIT 33.2 % (42-54); LYMPHOCYTES % (AUTO) 15.9 % (21.0-51.0); MEAN CORPUSCULAR HEMOGLOBIN 30.2 pg (27.0-33.0); MEAN CORPUSCULAR HGB CONC 34.3 g/dL (32.0-36.0); MEAN CORPUSCULAR VOLUME 87.8 fL (79-99); NEUTROPHILS % (AUTO) 75.1 % (40.0-77.0); PLATELET COUNT (AUTO) 265 K/uL (130-400); RED BLOOD CELL COUNT(AUTO) 3.78 MIL/uL (4.50-6.20); RED CELL DISTRIBUTION WIDTH 12.7 % (11.0-15.5); WHITE BLOOD COUNT (AUTO) 12.3 K/uL (4.8-10.8)
[2021-03-14] MEDS: ZOSYN 3.375GM+NS 50ML 50 ML IV SCH (05:29)
[2021-03-14 05:31] LABS: BILIRUBIN,TOTAL 0.3 mg/dL (0.2-1.0); CREATININE 1.5 mg/dL (0.5-1.5); POTASSIUM 3.2 mmol/L (3.5-5.1); TOTAL PROTEIN, SERUM 7.2 g/dL (6.0-8.3)
[2021-03-14] MEDS ORDERED: FAMOTIDINE 20MG TAB 20 MG TAB PO SCH (09:00)
[2021-03-14] MEDS: VALSARTAN PO SCH (09:00)
[2021-03-14] MEDS: SACUBITRIL PO SCH (09:00)
[2021-03-14] MEDS: METOPROLOL SUCCINATE 50 MG TAB.SR.24H PO SCH (09:00)
[2021-03-14] MEDS: FUROSEMIDE 40 MG TABLET PO SCH ×2 (09:00)
[2021-03-14] MEDS: ASPIRIN 81 MG EC TAB PO SCH (09:07)
== END 2021-03-14 13:15 | disposition home or self-care (01) ==
LOC: DAH 06:59 → 3CH 07:00
PROVIDERS: ADMIT Surgery; ATTEND Surgery
DX: K81.9 Cholecystitis, unspecified (principal); Z20.822 Contact with and (suspected) exposure to COVID-19; I10 Essential (primary) hypertension; E78.5 Hyperlipidemia, unspecified; I25.10 Atherosclerotic heart disease of native coronary artery without angina pectoris; I25.2 Old myocardial infarction; I25.5 Ischemic cardiomyopathy; I45.9 Conduction disorder, unspecified; Z95.0 Presence of cardiac pacemaker; Z95.1 Presence of aortocoronary bypass graft; Z79.82 Long term (current) use of aspirin; Z79.899 Other long term (current) drug therapy
CPT/HCPCS: 36415 ×4; 47562; 80048 ×4; 80053; 85025 ×3; 85610; 85730; 93005; 96365; 96366 ×3; A4215; A4222; A4223 ×2; A4600; A4649 ×2; A4663; A6260; C1769 ×3; C9803; G0378 ×52; J0690; J2001; J2250; J2405 ×2; J2543 ×6; J2704; J2710; J3010; J3480 ×2; J3490 ×4; J7030; J7120; U0003

== ENCOUNTER → 2021-04-03 | Outpatient (CLI) | payer BC ==
[~2021-04-03] MED LIST changes: -CEFAZOLIN SODIUM 1 GM VIAL IVP SCH; -SODIUM CHLORIDE 0.9% 1000ML 1,000 ML IV SCH
== END | disposition home or self-care (01) ==
LOC: SHCH 15:41
PROVIDERS: ATTEND Internal Medicine Cardiovascular Disease
DX: I51.7 Cardiomegaly (principal); I42.9 Cardiomyopathy, unspecified; I10 Essential (primary) hypertension; E78.5 Hyperlipidemia, unspecified
CPT/HCPCS: 93306; 93356

== ENCOUNTER 2021-07-11 05:57 | Day surgery (SDC) | payer BC ==
[2021-07-05 11:14] LABS: BASOPHILS % (AUTO) 1.3 % (0.0-5.0); HEMATOCRIT 38.9 % (42-54); LYMPHOCYTES % (AUTO) 26.4 % (21.0-51.0); MEAN CORPUSCULAR HEMOGLOBIN 30.3 pg (27.0-33.0); MEAN CORPUSCULAR VOLUME 86.6 fL (79-99); MONOCYTES % (AUTO) 9.6 % (3.0-13.0); NEUTROPHILS % (AUTO) 57.2 % (40.0-77.0); PLATELET COUNT (AUTO) 284 K/uL (130-400); RED BLOOD CELL COUNT(AUTO) 4.49 MIL/uL (4.50-6.20); RED CELL DISTRIBUTION WIDTH 13.5 % (11.0-15.5)
[2021-07-05 11:28] LABS: CREATININE 1.4 mg/dL (0.5-1.5)
[2021-07-05 11:44] LABS: POTASSIUM 3.4 mmol/L (3.5-5.1)
[2021-07-05 11:46] LABS: INR 1.05 (0.85-1.15); PROTHROMBIN TIME 11.4 SEC (9.6-11.6)
[2021-07-05 11:48] LABS: PARTIAL THROMBOPLASTIN TIME 29.9 SEC (26.3-35.5)
[2021-07-10 09:11] VITALS: BP 142/70
[2021-07-11] VITALS (8 sets, daily range): BP systolic 99–140; BP diastolic 58–73
[~2021-07-11] VITALS: Ht 167.6 cm; Wt 85.6 kg
[2021-07-11] MEDS ORDERED: 0.9%NACL 1000ML 1,000 ML IV ONE (06:09)
[2021-07-11] MEDS ORDERED: KCL 20 MEQ ERTAB PO ONE (07:03)
[2021-07-11] MEDS ORDERED: BUPIVACAINE/PF 0.25% 30ML VIAL IJ ONE (07:12)
[2021-07-11] MEDS ORDERED: CEFAZOLIN SODIUM 1 GM VIAL ONE (07:12)
[2021-07-11] MEDS ORDERED: MEPERIDINE-PF 25 MG/ML SYG ONE ×4 (07:12→08:37)
[2021-07-11] MEDS ORDERED: MIDAZOLAM HCL 1 MG/ML 2ML VIAL ONE ×4 (07:12→08:37)
[2021-07-11] MEDS ORDERED: IODIXANOL 320 MG/ML 100 ML VIAL ONE (07:12)
[2021-07-11] MEDS ORDERED: LIDOCAINE HCL 1% MDV 50ML VIAL ONE (07:13)
[2021-07-11] MEDS ORDERED: TRAM50TA4 PO (09:45)
[2021-07-11] MEDS ORDERED: ACETAMINOPHEN WITH CODEINE 1 TAB TAB PO PRN (10:00)
== END 2021-07-11 14:10 | disposition home or self-care (01) ==
LOC: DAH 05:57
PROVIDERS: ATTEND Internal Medicine Cardiovascular Disease
DX: Z45.010 Encounter for checking and testing of cardiac pacemaker pulse generator [battery] (principal); I25.5 Ischemic cardiomyopathy; I44.1 Atrioventricular block, second degree; I11.0 Hypertensive heart disease with heart failure; I50.42 Chronic combined systolic (congestive) and diastolic (congestive) heart failure; F17.290 Nicotine dependence, other tobacco product, uncomplicated; I25.2 Old myocardial infarction; Z79.82 Long term (current) use of aspirin; Z79.899 Other long term (current) drug therapy; Z98.890 Other specified postprocedural states; Z90.49 Acquired absence of other specified parts of digestive tract; Z79.01 Long term (current) use of anticoagulants; Z83.3 Family history of diabetes mellitus; Z82.49 Family history of ischemic heart disease and other diseases of the circulatory system
CPT/HCPCS: 33225; 33233; 33249; 36415 ×2; 71045; 80048; 84132; 85025; 85610; 85730; 93005; A4215; A4216; A4221; A4222; A4223 ×3; A4606; A4663; C1769 ×2; C1882; C1895; C1900; J0690; J2175 ×3; J2250 ×3; J3490 ×2; J7030; Q9967; 99156; 99157

== ENCOUNTER → 2022-11-28 | Outpatient (CLI) | payer OTHER ==
[~2022-11-28] MED LIST changes: +TRAM50TA4 PO
[2022-11-28 11:37] LABS: CHOLESTEROL 166 mg/dL (<200); HDL CHOLESTEROL 36 mg/dL (29-71); LDL DIRECT 104 mg/dL (0-99); TRIGLYCERIDES 169 mg/dL (30-200)
== END | disposition home or self-care (01) ==
LOC: LAB 08:36
PROVIDERS: ATTEND Internal Medicine Cardiovascular Disease
DX: I10 Essential (primary) hypertension (principal); E78.5 Hyperlipidemia, unspecified
CPT/HCPCS: 36415; 80061

== ENCOUNTER → 2023-06-03 | Outpatient (CLI) | payer OTHER ==
[2023-06-03 12:56] LABS: CHOLESTEROL 165 mg/dL (<200); HDL CHOLESTEROL 50 mg/dL (29-71); LDL DIRECT 90 mg/dL (0-99); TRIGLYCERIDES 95 mg/dL (30-200)
== END | disposition home or self-care (01) ==
LOC: LAB 08:50
PROVIDERS: ATTEND Internal Medicine Cardiovascular Disease
DX: E78.5 Hyperlipidemia, unspecified (principal)
CPT/HCPCS: 36415; 80061

== ENCOUNTER 2023-07-25 17:16 | Observation (INO) | payer OTHER ==
[~2023-07-25] VITALS: Ht 167.6 cm; Wt 98.2 kg
[2023-07-25 18:02] LABS: BASOPHILS # (AUTO) 0.05 K/uL (0.00-0.20); BASOPHILS % (AUTO) 0.6 % (0.0-5.0); EOSINOPHILS % (AUTO) 1.2 % (0.0-8.0); HEMATOCRIT 41.2 % (42-54); IMMATURE GRANULOCYTE ABSOLUTE 0.08 K/uL (0-1); LYMPHOCYTES # (AUTO) 1.1 K/uL (1.0-4.8); LYMPHOCYTES % (AUTO) 13.2 % (21.0-51.0); MEAN CORPUSCULAR HEMOGLOBIN 30.8 pg (27.0-33.0); MEAN CORPUSCULAR VOLUME 88.2 fL (79-99); MONOCYTES # (AUTO) 1.2 K/uL (0.1-1.0); MONOCYTES % (AUTO) 14.6 % (3.0-13.0); NEUTROPHILS # (AUTO) 5.7 K/uL (1.8-7.7); NEUTROPHILS % (AUTO) 69.4 % (40.0-77.0); PLATELET COUNT (AUTO) 215 K/uL (130-400); RED BLOOD CELL COUNT(AUTO) 4.67 MIL/uL (4.50-6.20); RED CELL DISTRIBUTION WIDTH 13.6 % (11.0-15.5); WHITE BLOOD COUNT (AUTO) 8.2 K/uL (4.8-10.8)
[2023-07-25 18:15] LABS: CREATININE 1.7 mg/dL (0.5-1.5); POTASSIUM 3.4 mmol/L (3.5-5.1)
[2023-07-25 18:27] LABS: ALBUMIN 3.2 g/dL (3.5-5.0); BILIRUBIN,TOTAL 0.7 mg/dL (0.2-1.0); TOTAL PROTEIN, SERUM 7.6 g/dL (6.0-8.3)
[2023-07-25 18:55] LABS: APPEARANCE,URINE CLEAR (CLEAR); BILIRUBIN,URINE NEGATIVE (NEGATIVE); COLOR,URINE LIGHT-YELLOW (YELLOW); GLUCOSE, URINE (UA) NEGATIVE (NEGATIVE); KETONES,URINE NEGATIVE (NEGATIVE); LEUKOCYTE ESTERASE ,URINE NEGATIVE Leu/uL (NEGATIVE); NITRATE,URINE NEGATIVE (NEGATIVE); OCCULT BLOOD,URINE NEGATIVE (NEGATIVE); PH,URINE 5.5 (5.0-8.0); PROTEIN,URINE NEGATIVE (NEGATIVE); UROBILINOGEN,URINE 0.2 mg/dL (0.2-1.0)
[2023-07-25 18:57] LABS: ADD UA MICROSCOPIC NO
[2023-07-25] MEDS ORDERED: 0.9%NACL 1000ML 1,000 ML IV ONE (19:30)
[2023-07-25 19:54] LABS: ALBUMIN 3.2 g/dL (3.5-5.0); BILIRUBIN,DIRECT 0.3 mg/dL (0.0-0.3); BILIRUBIN,TOTAL 0.8 mg/dL (0.2-1.0); TOTAL PROTEIN, SERUM 7.4 g/dL (6.0-8.3)
[2023-07-25 19:57] LABS: INFLUENZA TYPE B Negative For Type B (NEGATIVE)
[2023-07-25 20:00] LABS: INFLUENZA TYPE A Positive For Type A (NEGATIVE)
[2023-07-25 20:06] LABS: COVID19 (SARS ANTIGEN RAPID) PRESUMPTIVE NEGATIVE (NEGATIVE)
[2023-07-25] MEDS ORDERED: ROSU20TA73 PO (22:02)
[2023-07-25] MEDS ORDERED: SACU1TAB PO (22:03)
[2023-07-25] MEDS ORDERED: FURO20TA4 PO (22:04)
[2023-07-25] MEDS ORDERED: GUAIFENESIN-DM 200/20 MG 10 ML PO PRN (23:30)
[2023-07-25] MEDS ORDERED: 0.9%NACL 1000ML 1,000 ML IV SCH (23:30)
[2023-07-25] MEDS ORDERED: ACETAMINOPHEN 325 MG TAB PO PRN (23:30)
[2023-07-25] MEDS ORDERED: POTASSIUM CHLORIDE 10% ELIXIR 20 MEQ/15 ML UDCUP PO PRN (23:30)
[2023-07-25] MEDS ORDERED: ONDANSETRON 4MG INJ IV PRN (23:30)
[2023-07-25] MEDS ORDERED: LACTULOSE 20 GM/30 ML UDCUP PO PRN (23:30)
[2023-07-25] MEDS ORDERED: NITROGLYCERIN 0.4 MG SL TAB SL PRN (23:30)
[2023-07-25] MEDS ORDERED: MAG/ALUM/SIMETH 30 ML UDCUP PO PRN (23:30)
[2023-07-25] MEDS ORDERED: HYDRALAZINE 20MG/ML VIAL IV PRN (23:30)
[2023-07-25] MEDS ORDERED: POTASSIUM CHLORIDE 20MEQ/100ML 100 ML IV PRN (23:30)
[2023-07-25 23:46] VITALS: PULSE 61; RESP 14
[2023-07-25] MEDS: ALBUTEROL 0.083% 2.5 MG/3 ML INH IH SCH (23:46)
[2023-07-25] MEDS: 0.9%NACL 1000ML 1,000 ML IV SCH (23:59)
[2023-07-26] VITALS (12 sets, daily range): BP systolic 129–157; BP diastolic 63–76; PULSE 62–92; RESP 16–20; O2SAT 98–100
[2023-07-26] MEDS: ALBUTEROL 0.083% 2.5 MG/3 ML INH IH SCH ×4 (07:13→23:11)
[2023-07-26] MEDS: OSELTAMIVIR PHOSPHATE 75 MG CAP PO SCH (09:32)
[2023-07-26] MEDS: ENOXAPARIN SODIUM 30 MG/0.3 ML SQ SCH (09:32)
[2023-07-26] MEDS: FAMOTIDINE 20MG TAB PO SCH (09:32)
[2023-07-26] MEDS: ACETAMINOPHEN 325 MG TAB PO PRN (18:41)
[2023-07-26] MEDS: 0.9%NACL 1000ML 1,000 ML IV SCH (19:30)
[2023-07-26] MEDS: DOXYCYCLINE HYCLATE 100 MG TABLET PO SCH (20:31)
[2023-07-27] VITALS (7 sets, daily range): BP systolic 119–144; BP diastolic 55–70; PULSE 80–98; RESP 16–20; O2SAT 97
[2023-07-27 05:30] LABS: BASOPHILS # (AUTO) 0.03 K/uL (0.00-0.20); BASOPHILS % (AUTO) 0.4 % (0.0-5.0); EOSINOPHILS # (AUTO) 0.22 K/uL (0.00-0.70); EOSINOPHILS % (AUTO) 2.6 % (0.0-8.0); HEMATOCRIT 38.7 % (42-54); IMMATURE GRANULOCYTE ABSOLUTE 0.06 K/uL (0-1); LYMPHOCYTES # (AUTO) 1.3 K/uL (1.0-4.8); LYMPHOCYTES % (AUTO) 14.9 % (21.0-51.0); MEAN CORPUSCULAR HEMOGLOBIN 30.9 pg (27.0-33.0); MEAN CORPUSCULAR HGB CONC 34.6 g/dL (32.0-36.0); MEAN CORPUSCULAR VOLUME 89.4 fL (79-99); MONOCYTES # (AUTO) 1.1 K/uL (0.1-1.0); MONOCYTES % (AUTO) 13.5 % (3.0-13.0); NEUTROPHILS # (AUTO) 5.7 K/uL (1.8-7.7); NEUTROPHILS % (AUTO) 67.9 % (40.0-77.0); PLATELET COUNT (AUTO) 205 K/uL (130-400); RED BLOOD CELL COUNT(AUTO) 4.33 MIL/uL (4.50-6.20); RED CELL DISTRIBUTION WIDTH 13.7 % (11.0-15.5); WHITE BLOOD COUNT (AUTO) 8.4 K/uL (4.8-10.8)
[2023-07-27 05:49] LABS: ALBUMIN 2.9 g/dL (3.5-5.0); BILIRUBIN,TOTAL 0.5 mg/dL (0.2-1.0); CREATININE 1.5 mg/dL (0.5-1.5); MAGNESIUM 1.5 mg/dL (1.80-2.40); POTASSIUM 3.3 mmol/L (3.5-5.1); TOTAL PROTEIN, SERUM 7.2 g/dL (6.0-8.3)
[2023-07-27] MEDS ORDERED: MAGNESIUM 2GM PREMIX 50ML 50 ML IV PRN (06:00)
[2023-07-27] MEDS ORDERED: MAGNESIUM 2GM PREMIX 50ML 50 ML IV ONE (06:09)
[2023-07-27] MEDS: KCL 20 MEQ ERTAB PO PRN ×3 (06:10→09:28)
[2023-07-27] MEDS: FAMOTIDINE 20MG TAB PO SCH (06:53)
[2023-07-27] MEDS: ALBUTEROL 0.083% 2.5 MG/3 ML INH IH SCH ×2 (06:53→11:11)
[2023-07-27] MEDS: DOXYCYCLINE HYCLATE 100 MG TABLET PO SCH (08:33)
[2023-07-27] MEDS: OSELTAMIVIR PHOSPHATE 75 MG CAP PO SCH (08:34)
[2023-07-27] MEDS: ENOXAPARIN SODIUM 30 MG/0.3 ML SQ SCH (08:35)
[2023-07-27] MEDS ORDERED: METOPROLOL SUCCINATE 25 MG TAB.SR.24H PO SCH (09:00)
[2023-07-27] MEDS: ACETAMINOPHEN 325 MG TAB PO PRN (10:03)
[2023-07-27] MEDS ORDERED: MAGNESIUM 2GM PREMIX 50ML 50 ML IV SCH (11:00)
[2023-07-27] MEDS ORDERED: KCL 20 MEQ ERTAB PO ONE ×2 (11:00→15:00)
[2023-07-27] MEDS ORDERED: DOXY100T2 PO (14:33)
[2023-07-27] MEDS ORDERED: OSEL75 PO (14:33)
[2023-07-27] MEDS: 0.9%NACL 1000ML 1,000 ML IV SCH (15:30)
== END 2023-07-27 17:00 | disposition home or self-care (01) ==
LOC: EDH 17:16 → EDHIP 23:02 → 3DH 07-26 00:32 → 4DH 07-26 00:36
PROVIDERS: ADMIT Internal Medicine Critical Care Medicine; ATTEND Internal Medicine Critical Care Medicine
DX: J96.01 Acute respiratory failure with hypoxia (principal); Z20.822 Contact with and (suspected) exposure to COVID-19; J10.1 Influenza due to other identified influenza virus with other respiratory manifestations; I95.9 Hypotension, unspecified; I12.9 Hypertensive chronic kidney disease with stage 1 through stage 4 chronic kidney disease, or unspecified chronic kidney disease; N18.9 Chronic kidney disease, unspecified; N17.9 Acute kidney failure, unspecified; I25.10 Atherosclerotic heart disease of native coronary artery without angina pectoris; E87.1 Hypo-osmolality and hyponatremia; E87.6 Hypokalemia; E87.8 Other disorders of electrolyte and fluid balance, not elsewhere classified; R61 Generalized hyperhidrosis; E78.00 Pure hypercholesterolemia, unspecified; Z95.1 Presence of aortocoronary bypass graft; Z95.810 Presence of automatic (implantable) cardiac defibrillator; Z90.89 Acquired absence of other organs
CPT/HCPCS: 94664; 96361 ×3; 99285; 84484; 80053 ×2; 83690; 85025 ×2; 87804 ×2; 83605; 87426; 81003; 36415 ×2; 71045; 93005; 94640 ×7; 96372 ×2; 96374; 83735; G0378 ×40; J1650 ×2; J3475; 80076; 96375

== ENCOUNTER → 2023-08-28 | Outpatient (CLI) | payer OTHER ==
[~2023-08-28] MED LIST changes: +DOXY100T2 PO; +FURO20TA4 PO; +OSEL75 PO; +ROSU20TA73 PO; -SACU1TAB PO
[2023-08-28 12:22] LABS: CHOLESTEROL 126 mg/dL (<200); HDL CHOLESTEROL 31 mg/dL (29-71); LDL DIRECT 63 mg/dL (0-99); TRIGLYCERIDES 231 mg/dL (30-200)
== END | disposition home or self-care (01) ==
LOC: LAB 08:21
PROVIDERS: ATTEND Internal Medicine Cardiovascular Disease
DX: I10 Essential (primary) hypertension (principal)
CPT/HCPCS: 36415; 80061

== ENCOUNTER → 2023-11-24 | Outpatient (CLI) | payer OTHER | END | disposition home or self-care (01) | LOC: SHCH 08:36 | PROVIDERS: ATTEND Internal Medicine Cardiovascular Disease | DX: I11.9 Hypertensive heart disease without heart failure (principal); R06.00 Dyspnea, unspecified | CPT/HCPCS: 93306 ==

== ENCOUNTER → 2023-12-08 | Outpatient (CLI) | payer OTHER ==
[2023-12-08 13:17] LABS: CREATININE 1.4 mg/dL (0.5-1.5); POTASSIUM 4.3 mmol/L (3.5-5.1)
== END | disposition home or self-care (01) ==
LOC: LAB 10:41
PROVIDERS: ATTEND Internal Medicine Cardiovascular Disease
DX: I10 Essential (primary) hypertension (principal)
CPT/HCPCS: 36415; 80048

== ENCOUNTER → 2024-04-02 | Outpatient (CLI) | payer OTHER | END | disposition home or self-care (01) | LOC: SHCH 15:22 | PROVIDERS: ATTEND Internal Medicine Cardiovascular Disease | DX: I70.293 Other atherosclerosis of native arteries of extremities, bilateral legs (principal) | CPT/HCPCS: 93925 ==

== ENCOUNTER → 2024-04-08 | Outpatient (CLI) | payer OTHER ==
[2024-04-08 12:37] LABS: CREATININE 1.5 mg/dL (0.5-1.3); POTASSIUM 4.4 mmol/L (3.5-5.1)
== END | disposition home or self-care (01) ==
LOC: LAB 08:45
PROVIDERS: ATTEND Internal Medicine Cardiovascular Disease
DX: I10 Essential (primary) hypertension (principal)
CPT/HCPCS: 36415; 80048

== ENCOUNTER → 2024-04-22 | Outpatient (CLI) | payer OTHER ==
[2024-04-22 12:32] LABS: CREATININE 1.5 mg/dL (0.5-1.3); POTASSIUM 3.7 mmol/L (3.5-5.1)
== END | disposition home or self-care (01) ==
LOC: LAB 09:21
PROVIDERS: ATTEND Internal Medicine Cardiovascular Disease
DX: I10 Essential (primary) hypertension (principal); I25.5 Ischemic cardiomyopathy
CPT/HCPCS: 36415; 80048; 83880

== ENCOUNTER → 2024-12-20 | Outpatient (CLI) | payer OTHER ==
[~2024-12-20] MED LIST changes: -ROSU20TA73 PO; +ROSU20TA98 PO
[2024-12-20 12:22] LABS: BASOPHILS # (AUTO) 0.06 K/uL (0.00-0.20); BASOPHILS % (AUTO) 0.7 % (0.0-5.0); EOSINOPHILS # (AUTO) 0.13 K/uL (0.00-0.70); EOSINOPHILS % (AUTO) 1.5 % (0.0-8.0); HEMATOCRIT 40.2 % (42-54); IMMATURE GRANULOCYTE ABSOLUTE 0.08 K/uL (0-1); LYMPHOCYTES # (AUTO) 1.7 K/uL (1.0-4.8); LYMPHOCYTES % (AUTO) 20.4 % (21.0-51.0); MEAN CORPUSCULAR HEMOGLOBIN 29.9 pg (27.0-33.0); MEAN CORPUSCULAR HGB CONC 33.1 g/dL (32.0-36.0); MEAN CORPUSCULAR VOLUME 90.3 fL (79-99); MONOCYTES # (AUTO) 0.9 K/uL (0.1-1.0); MONOCYTES % (AUTO) 10.1 % (3.0-13.0); NEUTROPHILS # (AUTO) 5.6 K/uL (1.8-7.7); NEUTROPHILS % (AUTO) 66.3 % (40.0-77.0); PLATELET COUNT (AUTO) 230 K/uL (130-400); RED BLOOD CELL COUNT(AUTO) 4.45 MIL/uL (4.50-6.20); WHITE BLOOD COUNT (AUTO) 8.4 K/uL (4.8-10.8)
[2024-12-20 12:54] LABS: CREATININE 1.4 mg/dL (0.5-1.3); POTASSIUM 4.5 mmol/L (3.5-5.1)
== END | disposition home or self-care (01) ==
LOC: LAB 09:15
PROVIDERS: ATTEND Internal Medicine Cardiovascular Disease
DX: I10 Essential (primary) hypertension (principal); E78.5 Hyperlipidemia, unspecified; N40.1 Benign prostatic hyperplasia with lower urinary tract symptoms
CPT/HCPCS: 36415; 80048; 80061; 84153; 85025

== ENCOUNTER 2025-06-10 21:22 | Emergency (ER) | payer OTHER ==
[~2025-06-10] VITALS: Ht 167.6 cm; Wt 108.0 kg
[2025-06-10] MEDS ORDERED: OCTYL 2-CYANOACRYLATE 1 EACH TP ONE (21:30)
--- NOTE | 2025-06-10 21:41 | ERN ---
General Chief Complaint: Wound Check Stated Complaint: WOUND TO LEFT LOWER LEG Time Seen by MD: 21:26 Source: patient History of Present Illness Initial Comments 64-year-old male status post CABG with bilateral lower edema. He got an extremely small cut in the skin in his anterior mckeon yesterday and since then clear fluid has been leaking out of the cut. No fevers or chills no redness no tenderness. Allergies: Coded Allergies: No Known Drug Allergies (Unverified Allergy, Unknown, 01/27/20) Uncoded Allergies: NKDA (Allergy, Unknown, 06/12/18) NKDA Home Meds Active Scripts Oseltamivir Phosphate (Tamiflu) 75 Mg Cap, 75 MG PO DAILY, #3 CAP Prov:KYARA VELEZ BUSINESS INTELLIGENCE DEVELOPER 07/27/23 Doxycycline Hyclate (Doxycycline Hyclate) 100 Mg Tablet, 100 MG PO BID, #14 TAB Prov:KYARA VELEZ BUSINESS INTELLIGENCE DEVELOPER 07/27/23 Tramadol Hcl (Tramadol HCl) 50 Mg Tablet, 50 MG PO Q6HPRN PRN for PAIN LEVEL 6 TO 10, #30 TAB 0 Refills Prov:DEEP AMOR MD 07/11/21 Reported Medications Furosemide (Furosemide) 20 Mg Tablet, 20 MG PO QODAY, TAB 07/25/23 Rosuvastatin Calcium (Rosuvastatin Calcium) 20 Mg Tablet, 20 MG PO DAILY, TAB 07/25/23 Famotidine (Pepcid) 20 Mg Tablet, 20 MG PO DAILY, TAB 01/01/21 Furosemide (Furosemide) 40 Mg Tablet, 40 MG PO AM, TAB 11/29/20 Metoprolol Succinate (Metoprolol Succinate) 25 Mg Tab.er.24h, 25 MG PO DAILY, TAB 10/19/20 Aspirin (ASPIRIN 81 MG ECTAB) 81 Mg Ectab, 81 MG PO DAILY, TAB.EC 10/19/20 Past Medical History Past Medical History: High Cholesterol, Heart Disease, Hypertension Past Surgical History: Appendectomy, Cholecystectomy, CABG, Pacer/AICD ROS Dictation Review of systems are negative beyond what is in the HPI in the chief complaint. Physical Exam Extremities Comment Left anterior mckeon has an extremely small laceration less than 0.4 cm. There was no surrounding erythema swelling or redness. Nares clear fluid coming out of the incision. MDM I closed the incision with Dermabond. It is simply edema coming out of a small laceration. ED Course Orders Procedure Category Date Status Time Dermabond (Dermabond) PHA 06/10/25 Complete 21:30 Dermabond (Dermabond) PHA 06/10/25 Complete 21:31 Current Medications Medications (Trade) Dose Ordered Sig/Alanna Route PRN Reason Start Time Stop Time Status Last Admin Dose Admin Octyl Cyanoacrylate (Dermabond) 1 each ONCE ONCE TP 06/10/25 21:30 06/10/25 21:32 DC Octyl Cyanoacrylate (Dermabond) 1 each STK-MED ONCE TP 06/10/25 21:31 06/10/25 21:32 DC Vital Signs Date Time Temp Pulse Resp B/P (MAP) Pulse Ox O2 Delivery O2 Flow Rate FiO2 06/10/25 21:24 97.5 72 18 152/68 97 Room Air Laceration/Wound Repair Laceration/Wound Repair : Wound Location: lower extremity Wound Length (cm): 0 Wound's Depth, Shape: superficial (0.3 cm) Wound Explored: clean Betadine Prep?: No Wound Debrided: minimal Wound Repaired With: Dermabond DX & DISP Disposition: Discharge Departure Impression: Primary Impression: Laceration of left leg Condition: Stable Additional Instructions: In a very small laceration to your left anterior mckeon. It has been leaking fluid from edema in your left leg. It is uninfected. I have covered it with Dermabond. Please no showers until tomorrow morning. After that showers are okay no soaking baths no swimming no saunas no Jacuzzi he has for one week. Please return if the area becomes red swollen more tender and has other signs of an infection. I recommend following up with your primary care physician for increasing the water pills you take to help decrease the edema you have in your legs. Referrals: YOON BEJARANO DO (PCP) LEV EMANUEL MD Jun 10, 2025 21:41
[2025-06-10 21:50] VITALS: BP 147/95; PULSE 78; RESP 18; TEMP 97.5; O2SAT 98
[2025-06-10] MEDS: OCTYL 2-CYANOACRYLATE 1 EACH TP ONE (21:58)
== END 2025-06-10 22:05 | disposition home or self-care (01) ==
LOC: EDH 21:22
DX: S81.812A Laceration without foreign body, left lower leg, initial encounter (principal); E78.00 Pure hypercholesterolemia, unspecified; I10 Essential (primary) hypertension; Z79.82 Long term (current) use of aspirin; Z79.899 Other long term (current) drug therapy; Z90.49 Acquired absence of other specified parts of digestive tract; Z95.1 Presence of aortocoronary bypass graft; Z95.810 Presence of automatic (implantable) cardiac defibrillator; X58.XXXA Exposure to other specified factors, initial encounter; Y93.89 Activity, other specified; Y92.89 Other specified places as the place of occurrence of the external cause; Y99.8 Other external cause status
CPT/HCPCS: 12001; 99282